=== PATIENT | female | born 1975 | race Caucasian/White ===

== ENCOUNTER 2016-09-12 08:46 | Emergency (ER) | payer OTHER ==
[2016-09-12] MEDS ORDERED: Acetaminophen TAB* 325 MG PO ONE (09:43)
[2016-09-12] MEDS ORDERED: Tetan/Diph/Pertus SYR(Tdap)* 0.5 ML SYR(BOOSTRIX) use SYR IM ONE (10:14)
[2016-09-12] MEDS ORDERED: Lidocaine 2% PF * 5 ML VIAL INJ ONE ×2 (10:15→10:17)
[2016-09-12] MEDS ORDERED: Lidocaine/Epineph/Tetraca SOL* (LET solution) 4 ML BTL TOPICAL ONE (10:16)
[2016-09-12 12:03] VITALS: BP 138/93
--- NOTE | 2016-09-12 12:11 | UC ---
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 TETANUS UNKNOWN - History Of Current Complaint Chief Complaint: UCLaceration Stated Complaint: RIGHT HAND LAC/INJURY Time Seen by Provider: 09/12/16 09:41 Hx Obtained From: Patient, Family/Pharmaceutical Assistant Laceration Location: Hand Mechanism Of Injury: Sharp Trauma Onset/Duration: Sudden Onset, Lasting Hours, Still Present Severity: Moderate Aggravating Factors: Position, Movement Related History: Dominant Hand Right - Allergies/Home Medications Allergies/Adverse Reactions: Allergies Allergy/AdvReac Type Severity Reaction Status Date / Time Penicillins Allergy Intermediate Rash Verified 09/12/16 09:30 Home Medications: Home Medications Levothyroxine TAB* [Synthroid TAB*] 75 mcg PO 0800 09/12/16 [History Confirmed 09/12/16] PMH/Surg Hx/FS Hx/Imm Hx Previously Healthy: Yes - Surgical History Surgical History: Yes Surgery Procedure, Year, and Place: appy - Family History Known Family History: Negative: Blood Disorder - Social History Occupation: Employed Full-time Lives: With Family Alcohol Use: Rare Substance Use Type: None Smoking Status (MU): Never Smoked Tobacco - Immunization History Most Recent Tetanus Shot: unsure Review of Systems Constitutional: Negative Skin: Other - LACERATION RIGHT HAND Eyes: Negative ENT: Negative Respiratory: Negative Cardiovascular: Negative Gastrointestinal: Negative Genitourinary: Negative Motor: Negative Neurovascular: Negative Musculoskeletal: Negative Neurological: Negative Psychological: Negative All Other Systems Reviewed And Are Negative: Yes Physical Exam Triage Information Reviewed: Yes Appearance: Well-Appearing, No Pain Distress, Well-Nourished Vital Signs: Initial Vital Signs Temp 99.9 F 09/12/16 09:25 Pulse 87 09/12/16 09:25 Resp 18 09/12/16 09:25 BP 150/93 09/12/16 09:25 Pulse Ox 97 09/12/16 09:25 Vital Signs Reviewed: Yes Eye Exam: Normal ENT Exam: Normal Dental Exam: Normal Neck exam: Normal Respiratory Exam: Normal Respiratory: Positive: Chest non-tender, Lungs clear, Normal breath sounds, No respiratory distress Cardiovascular Exam: Normal Cardiovascular: Positive: RRR, No Murmur Abdominal Exam: Normal Musculoskeletal Exam: Normal Neurological Exam: Normal Psychological Exam: Normal Skin: Positive: Other - LACERATION RIGHT HAND Laceration Repair - Laceration Repair 1 Description: Irregular Laceration Size After Repair: Length (cm) - 8, Width (mm) - 50, Depth (mm) - 20 Type Injection: Local Anesthesia Used: 2.0% Lido Cleansing Completed Via Routine Prep: Yes Irrigation With Pressure Irrigation Device: Yes Closure Material: Sutures - 11 X 4-0 Suture Of: Skin, SQ Suture Type: Prolene Laceration Course/Dx - Differential Dx - Laceration/Wound Differental Diagnoses: Cellulitis, Joint Infection, Laceration, Tendon Laceration Provider Diagnoses: LACERATION RIGHT HAND; TETANUS PROPHYLAXIS Discharge - Discharge Plan Condition: Stable Disposition: HOME Prescriptions: Cephalexin CAP* [Keflex CAP*] 500 mg PO QID #40 cap Patient Education Materials: Care For Your Stitches (ED), Laceration (ED) Referrals: [facility] [facility] [Outside] No Primary Care Phys,NOPCP [Primary Care Provider] - Nunu Edwards MD [Medical Doctor] - Additional Instructions: PLEASE CALL DR EDWARDS'S OFFICE TO SET UP A PROMPT APPOINTMENT FOR FOLLOW UP. SUTURES TO REMAIN IN FOR TEN DAYS UNLESS OTHERWISE INSTRUCTED BY DR. EDWARDS. PLEASE CALL YOUR PRIMARY CARE PROVIDER AND INFORM THEM THAT YOUR TETANUS HAS BEEN UPDATED TODAY. PRIMARY CARE: There are four major types of clinical preventive care: immunizations, screening , behavioral counseling (sometimes referred to as lifestyle changes), and chemoprevention. All four apply throughout the life span. It is important to establish and to have access to a Primary Care Physician, not only for follow- up regrding acute and chronic problems, but also for preventative care. Images Hands: 1 - LACERATION HERE
== END 2016-09-12 12:15 | disposition home or self-care (01) ==
LOC: UCEAST 08:46
DX: S61.411A Laceration without foreign body of right hand, initial encounter (principal); W25.XXXA Contact with sharp glass, initial encounter; Y93.89 Activity, other specified; Y92.9 Unspecified place or not applicable; Y99.9 Unspecified external cause status; Z23 Encounter for immunization
CPT/HCPCS: 12004; 90471; 90715; 99204; A9270-GY; G0463

== ENCOUNTER 2016-09-12 14:41 | Emergency (ER) | payer OTHER ==
--- NOTE | 2016-09-12 17:28 | ED ---
Laceration/Wound HPI - HPI Summary HPI Summary: 41 female presents with complaints of bleeding from her recently sutured right hand laceration today 09/12/16. Patient states she was at work when a flask broke , cutting her hand. Patient was seen at [facility] where she had sutures placed and bleeding controlled. However she had an episode of bleeding and the dressing that was applied at urgent care soaked through. Patient also complains of pressure and intense pain at this time. She is still experiencing pain in her right distal forearm and at laceration. Patient denies current bleeding at this time. Not on blood thinners. Bleeding has slowed. Patient took a tylenol around 2am. States wound was thoroughly cleaned and no glass was noted in the wound. Dr Wilkes was also next door and able to view laceration while at urgent care. Pain has decreased. No swelling at this time. - History of Current Complaint Stated Complaint: RT WRIST LAC Time Seen by Provider: 09/12/16 16:28 Hx Obtained From: Patient Hx Last Menstrual Period: 09/07/16 Mechanism of Injury: Sharp/Blunt Trauma Onset/Duration: Sudden Onset Aggravating: Movement Alleviating: Compression Timing: Constant Onset Severity: Moderate Current Severity: Mild Pain Intensity: 5 Pain Scale Used: 0-10 Numeric Associated Signs & Symptoms: Pain - Allergy/Home Medications Allergies/Adverse Reactions: Allergies Allergy/AdvReac Type Severity Reaction Status Date / Time Penicillins Allergy Intermediate Rash Verified 09/12/16 09:30 PMH/Surg Hx/FS Hx/Imm Hx Endocrine/Hematology History: Reports: Hx Thyroid Disease - hypo Denies: Hx Anticoagulant Therapy Cardiovascular History: Denies: Hx Hypertension Respiratory History: Denies: Hx Asthma - Surgical History Surgery Procedure, Year, and Place: appy - Immunization History Immunizations Up to Date: Yes Infectious Disease History: No Infectious Disease History: Denies: Traveled Outside the [place] in Last 30 Days - Family History Known Family History: Positive: None Negative: Blood Disorder - Social History Alcohol Use: Rare Substance Use Type: Reports: None Smoking Status (MU): Never Smoked Tobacco Review of Systems Constitutional: Negative Cardiovascular: Negative Respiratory: Negative Gastrointestinal: Negative Positive: Arthralgia, Myalgia - right hand, forearm Positive: Other - laceration Neurological: Negative All Other Systems Reviewed And Are Negative: Yes Physical Exam Triage Information Reviewed: Yes Vital Signs On Initial Exam: Initial Vitals Temp Pulse Resp BP Pulse Ox 98.4 F 105 20 169/101 96 09/12/16 14:42 09/12/16 14:42 09/12/16 14:42 09/12/16 14:42 09/12/16 14:42 Vital Signs Reviewed: Yes Appearance: Positive: Well-Appearing, Well-Nourished, Pain Distress - mild Skin: Positive: Warm, Skin Color Reflects Adequate Perfusion, Dry, Other - laceration already sutured on anterior right palm, no active bleeding, minimal edema, some ecchymosis. not firm or sign of emergent etiology at this time. Negative: Cold, Numb, Cyanosis @ Head/Face: Positive: Normal Head/Face Inspection Eyes: Positive: Normal, Conjunctiva Clear ENT: Positive: Hearing grossly normal Neck: Positive: Supple, Nontender Respiratory/Lung Sounds: Positive: Clear to Auscultation, Breath Sounds Present. Negative: Rales, Rhonchi, Wheezes Cardiovascular: Positive: Normal, RRR, Pulses are Symmetrical in both Upper and Lower Extremities - 2+ radial b/l. Negative: Murmur, Rub Musculoskeletal: Positive: Limited @ - right hand due to laceration, Pain @ - laceration and on palpation of right distal forearm, Edema Right - minimal at laceration of anterior right palm around laceration. Negative: Interruption @, Edema Left Neurological: Positive: Normal, Sensory/Motor Intact - sensation intact, Alert, Oriented to Person Place, Time, CN Intact II-III, Reflexes Intact, NV Bundle Intact Distally, Normal Gait Psychiatric: Positive: Affect/Mood Appropriate AVPU Assessment: Alert Diagnostics - Vital Signs Vital Signs Temp Pulse Resp BP Pulse Ox 09/12/16 15:14 98.4 F 105 20 169/101 96 09/12/16 14:42 98.4 F 105 20 169/101 96 - Laboratory Lab Statement: Any lab studies that have been ordered have been reviewed, and results considered in the medical decision making process. - Radiology right hand Xray Interpretation: No Acute Changes - NO ACUTE OSSEOUS INJURY. NO RADIOPAQUE FOREIGN BODY. IF SYMPTOMS PERSIST, RECOMMEND REPEAT IMAGING. Radiology Interpretation Completed By: Radiologist Laceration Repair Course/Dx - Course Course Of Treatment: due to bleeding resolving on exam it was re-dressed and observed. given pain management and to continue at home. spoke with Dr Wilkes who stated to follow up Deonte and no obvious emergent concern at this time. X- ray obtained and negative for fracture and foreign body. Aware of worsening signs and symptoms to watch out for. Follow up with PCP as well. RICE and pain meds. Ice. Watch for infection and keep clean and dry. - Differential Dx Differental Diagnoses: Cellulitis, Compartment Syndrome, Foreign Body, Fracture , Healing Wound, Laceration, Tenosynovitis - Clinical Impression Provider Diagnoses: Laceration of hand, left Discharge - Discharge Plan Condition: Stable Disposition: HOME Patient Education Materials: Laceration (ED), Care For Your Stitches (ED) Referrals: No Primary Care Phys,NOPCP [Primary Care Provider] - Nunu Wilkes MD [Medical Doctor] - [facility] [place] [facility] [Outside] Additional Instructions: Follow up with Dr Wilkes on Thursday. Return if symptoms return, persist or do not improve as we discussed. Take pain management. Do not use and keep dressed with compression. Ice and elevate.
--- NOTE | 2016-09-12 17:50 | RAD ---
HISTORY: Laceration to right first anterior metacarpal area, rule out foreign body COMPARISONS: None VIEWS: 2, Frontal and lateral views of the right hand FINDINGS: BONE DENSITY: Normal. BONES: There is no displaced fracture. JOINTS: There is no arthropathy. ALIGNMENT: There is no dislocation. SOFT TISSUES: Unremarkable. OTHER FINDINGS: There is no radiopaque foreign body. IMPRESSION: NO ACUTE OSSEOUS INJURY. NO RADIOPAQUE FOREIGN BODY. IF SYMPTOMS PERSIST, RECOMMEND REPEAT IMAGING.
[2016-09-12 18:23] VITALS: BP 144/83
== END 2016-09-12 18:22 | disposition home or self-care (01) ==
LOC: ED 14:41
DX: S61.411A Laceration without foreign body of right hand, initial encounter (principal); W26.9XXA Contact with unspecified sharp object(s), initial encounter; Y93.9 Activity, unspecified; Y92.89 Other specified places as the place of occurrence of the external cause; Y99.9 Unspecified external cause status
CPT/HCPCS: 99282

== ENCOUNTER 2016-09-16 10:04 | Day surgery (SDC) | payer OTHER ==
[2016-09-16] MEDS ORDERED: Sodium Citrate/Citric Acid* 15 ML UDC ONE (10:48)
[2016-09-16] MEDS ORDERED: Clindamycin 900 MG IVPREMIX(* 900 MG/50 ML SDV IV ONE (10:48)
[2016-09-16] MEDS ORDERED: Lidocaine 1% INJ* 10 MG/ML 30 ML SDV ONE (12:09)
[2016-09-16] MEDS ORDERED: fentaNYL* 50 MCG/ML 2 ML VIAL (100 MCG VIAL) ONE (12:17)
[2016-09-16] MEDS ORDERED: Lidocaine 2% PF * 5 ML VIAL ONE (12:54)
[2016-09-16] MEDS ORDERED: Propofol* 10 MG/ML 20 ML BTL IV PUSH ONE (12:54)
[2016-09-16] MEDS ORDERED: KETAMINE HCL* 50 MG/ML 10 ML VIAL ONE (12:55)
[2016-09-16] MEDS ORDERED: traMADol TAB* 50 MG ONE (13:24)
[2016-09-16] MEDS ORDERED: Ketorolac INJ* 30 MG/ML 1 ML VIAL ONE (13:25)
[2016-09-16] MEDS ORDERED: Acetaminophen TAB* 325 MG ONE (13:25)
[2016-09-16 13:49] VITALS: BP 137/95
--- NOTE | 2016-09-17 02:44 | OP ---
DATE OF OPERATION: 09/16/16 [facility] DATE OF : 73 SURGEON: Nunu Wilkes MD FIELD WORKER: TUCKER Acharya ANESTHESIA: Local MAC. PRE-OP DIAGNOSIS: Digital nerve laceration of the right thumb. POST-OP DIAGNOSIS: Flexor tendon laceration of the right thumb. OPERATIVE PROCEDURE: Right thumb wound exploration and flexor tendon repair. INDICATIONS: Nasrin is a 41-year-old female who was injured at work. Several days ago, she cut herself with broken glass in her thenar eminence. Since then, she has had decreased sensation on the radial border of her thumb. She has active flexion and extension of the thumb. She presents for wound exploration and digital nerve repair. ESTIMATED BLOOD LOSS: Zero. TOURNIQUET TIME: About 35 minutes. OPERATIVE FINDINGS: The digital nerves were all intact. The palmar cutaneous branch of the median nerve was intact. The flexor tendon had an oblique laceration about 50% of the thickness of the tendon. This was repaired. DESCRIPTION OF PROCEDURE: The patient was brought to the operating room, was given a sedation anesthetic and a local infiltration of total of 30 cc of 1% plain lidocaine in the palm of her right hand. The skin of her right hand and forearm was prepped and draped in the usual sterile fashion. The hand and forearm were exsanguinated and the tourniquet elevated to 250 mmHg. The sutures were removed and the wound was explored. All the nerves were carefully dissected out through the entire wound and the wound was extended distally a bit. The radial digital nerve to the thumb was completely intact. The common digital nerve to the index finger and ulnar aspect of the thumb was traced all the way back to the main median nerve and was intact. The flexor tendon was explored and the A1 milka was incised. There was a 50% oblique laceration of the flexor tendon. This was repaired with 4-0 Prolene suture. The wound was copiously irrigated with saline and the skin edges reapproximated with 4-0 nylon suture. The wound was dressed with Xeroform, 4x4, Webril and an Sunil wrap. The patient tolerated the procedure well, was brought to the recovery room in good condition. [id number]/[facility] #: [id number] [facility]
== END 2016-09-16 14:02 | disposition home or self-care (01) ==
LOC: OREAST 10:04
PROVIDERS: ATTEND Orthopaedic Surgery
DX: S66.021A Laceration of long flexor muscle, fascia and tendon of right thumb at wrist and hand level, initial encounter (principal); W25.XXXA Contact with sharp glass, initial encounter; Y92.9 Unspecified place or not applicable; Z88.0 Allergy status to penicillin; E03.9 Hypothyroidism, unspecified; I10 Essential (primary) hypertension
CPT/HCPCS: 81025; A9270-GY; J1885; J2001; J2704; J3010